=== PATIENT | male | born 1985 | race Caucasian/White ===

== ENCOUNTER 2020-01-24 15:42 | Inpatient (IN) | payer BC ==
[~2020-01-24] VITALS: Ht 182.9 cm; Wt 86.5 kg
[2020-01-24] MEDS ORDERED: NALOXONE 2 MG/2 ML DISP.SYRIN. IV ONE (17:00)
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
[2020-01-24] MEDS ORDERED: IV NORMAL SALINE 1000ML BAG 1,000 ML IV ONE (18:15)
[2020-01-24 18:29] LABS: BASO # 0.1 x10^3/uL (0.0-0.2); BASO % 1 % (0-3); EOS # 0.4 x10^3/uL (0.0-0.7); EOS % 5 % (0-3); HEMATOCRIT 43.7 % (39.0-53.0); HEMOGLOBIN 14.9 g/dL (13.0-17.5); LYMPH % 24 % (24-48); MEAN CORPUSCULAR HEMOGLOBIN 32 pg (25-35); MEAN CORPUSCULAR HGB CONC 34 g/dL (31-37); MEAN CORPUSCULAR VOLUME 95 fL (79-100); MONO # 0.5 x10^3/uL (0.0-1.1); MONO % 6 % (0-9); NEUT # 5.6 x10^3/uL (1.8-7.7); NEUT % 65 % (31-73); PLATELET COUNT 225 x10^3/uL (140-400); RED BLOOD COUNT 4.62 x10^6/uL (4.30-5.70); RED CELL DISTRIBUTION WIDTH 13.5 % (11.5-14.5); WHITE BLOOD COUNT 8.6 x10^3/uL (4.0-11.0)
[2020-01-24 18:40] LABS: CALCIUM 9.2 mg/dL (8.5-10.1); CREATININE 0.9 mg/dL (0.7-1.3); GFR 97.2; POTASSIUM 3.9 mmol/L (3.5-5.1)
[2020-01-24 18:46] LABS: ALBUMIN 4.4 g/dL (3.4-5.0); ALBUMIN/GLOBULIN RATIO 1.3 (1.0-1.7); ETHANOL < 10 mg/dL (0-10); SALIC < 2.8 mg/dL (2.8-20.0); TOTAL BILIRUBIN 0.4 mg/dL (0.2-1.0); TOTAL PROTEIN 7.7 g/dL (6.4-8.2)
[2020-01-24 18:47] LABS: ACETAMIN < 2 mcg/ml (10-30)
[2020-01-24] MEDS ORDERED: NALOXONE 2 MG/2 ML DISP.SYRIN. IV PRN (20:00)
[2020-01-24] MEDS ORDERED: ONDANSETRON PF 4 MG/2 ML VIAL. IV PRN ×2 (20:00→21:00)
[2020-01-24] MEDS ORDERED: ALBUTEROL SULFATE 2.5 MG/3 ML NEBU. NEB PRN (21:00)
[2020-01-24] MEDS ORDERED: diphenhydrAMINE 50 MG/ML VIAL IVP PRN (21:00)
[2020-01-24] MEDS ORDERED: ZOLPIDEM 5 MG TABLET. PO PRN (21:00)
[2020-01-24] MEDS ORDERED: DOCUSATE SODIUM 100 MG CAPSULE. PO PRN (21:00)
[2020-01-24] MEDS ORDERED: guaiFENesin ORAL 200 MG/10 ML LIQUID. PO PRN (21:00)
--- NOTE | 2020-01-24 21:25 | NUR ---
Patient, KEILA FERNANDEZ, admitted to room 244, per navdeep/ED, patient very somnolent, did open eyes when transferred to bed, also when turning him to remove excess bedding out from under him..staff slipped his jeans off, in case he had any meds in his pockets. patient did open his eyes, unable to obtain any history from him, the history that was obtained, was from ED staff's discussions with patient's mother. BRYSON Cook, called to check on pt, did not have passcode, so not much info is given, Ms Cook said he is on Abilify and trazodone, and unknown names of other medications.
[2020-01-24 21:30] VITALS: BP 103/53
[2020-01-24] MEDS ORDERED: MULTIVIT INFUSN,ADULT 4,VIT K 10 ML, THIAMINE INJ 100 MG, FOLIC ACID INJ 1 MG in IV NOR... IV ONE (22:00)
[2020-01-24 22:50] VITALS: BP 114/67
[2020-01-24 23:40] VITALS: BP 133/75
[2020-01-24] MEDS ORDERED: NALOXONE 0.4 MG/ML VIAL. IV ONE (23:45)
[2020-01-24 23:50] VITALS: BP 150/83
[2020-01-25] VITALS (11 sets, daily range): BP systolic 95–141; BP diastolic 55–68
[2020-01-25 00:27] LABS: BASE EXCESS ABG 1 mmol/L (-3-3); HCO3 ABG 31 mmol/L (21-28); PO2 ABG 67 mmHg (85-108)
[2020-01-25] MEDS ORDERED: NALOXONE 0.4 MG/ML VIAL. IV PRN (00:45)
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
[2020-01-25] MEDS ORDERED: FLUMAZENIL 0.5 MG/5 ML VIAL. IV ONE ×2 (01:00→09:45)
[2020-01-25 01:12] LABS: PCO2 ABG 80 mmHg (35-46)
[2020-01-25 01:13] LABS: FIO2 ABG 50%
--- NOTE | 2020-01-25 01:31 | NUR ---
Patient's GF, Lesvia Cook, had called again to check on the patient, she said that he was in detox (somewhere behind [facility]), he was there approximately 1 1/2 days, and was not given any meds to help with his detox, so he left AMA. PAT team had talked to patient's mother in the ED, had been given a brochure on [facility] [facility] [place], GF said she [facility], GF said his drug problems have been going on for approximately 2 years.
[2020-01-25 03:02] LABS: BASE EXCESS ABG 3 mmol/L (-3-3); HCO3 ABG 30 mmol/L (21-28); PCO2 ABG 56 mmHg (35-46); PO2 ABG 81 mmHg (85-108)
[2020-01-25 03:07] LABS: FIO2 ABG 50
--- NOTE | 2020-01-25 05:27 | NUR ---
Patient assessed at this time, RR 16, awakens when his name was called, clears throat and asks to be suctioned, clear sputum observed, patient denies having to void, monitoring..
[2020-01-25 08:09] LABS: BILIRUBIN,URINE NEGATIVE (NEG); CLARITY,URINE CLEAR; COLOR,URINE YELLOW; NITRITE,URINE NEGATIVE (NEG); PROTEIN,URINE NEGATIVE (NEG-TRACE); UROBILINOGEN,URINE 0.2 mg/dL (0.2 mg/dL)
[2020-01-25 08:14] LABS: BARBITURATES NEG (NEG); BENZODIAZEPINES POS (NEG); CANNABINOIDS NEG (NEG); COCAINE NEG (NEG); METHADONE NEG (NEG); OPIATES POS (NEG); PHENCYCLIDINE NEG (NEG)
[2020-01-25] MEDS: ACETAMINOPHEN 325 MG TABLET. PO PRN ×2 (08:14→21:38)
[2020-01-25 08:16] LABS: AMPHETAMINE/METHAMPHETAMINE NEG (NEG)
[2020-01-25 08:54] LABS: BACTERIA,URINE 0 /HPF (0-FEW); RBC,URINE 0 /HPF (0-2); SQUAMOUS EPITHELIAL CELL,UR OCC /LPF; WBC,URINE OCC /HPF (0-4)
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
[2020-01-25] MEDS ORDERED: FLUMAZENIL 0.5 MG/5 ML VIAL. IV STA (09:31)
[2020-01-25 09:58] LABS: BASO # 0.1 x10^3/uL (0.0-0.2); BASO % 1 % (0-3); EOS # 0.2 x10^3/uL (0.0-0.7); EOS % 1 % (0-3); HEMATOCRIT 42.5 % (39.0-53.0); HEMOGLOBIN 14.1 g/dL (13.0-17.5); LYMPH # 4.1 x10^3/uL (1.0-4.8); LYMPH % 25 % (24-48); MEAN CORPUSCULAR HEMOGLOBIN 32 pg (25-35); MEAN CORPUSCULAR HGB CONC 33 g/dL (31-37); MEAN CORPUSCULAR VOLUME 95 fL (79-100); MONO # 1.2 x10^3/uL (0.0-1.1); MONO % 7 % (0-9); NEUT # 10.8 x10^3/uL (1.8-7.7); NEUT % 66 % (31-73); PLATELET COUNT 233 x10^3/uL (140-400); RED BLOOD COUNT 4.47 x10^6/uL (4.30-5.70); RED CELL DISTRIBUTION WIDTH 13.9 % (11.5-14.5); WHITE BLOOD COUNT 16.4 x10^3/uL (4.0-11.0)
[2020-01-25 10:06] LABS: ALBUMIN 3.9 g/dL (3.4-5.0); ALBUMIN/GLOBULIN RATIO 1.2 (1.0-1.7); C-REACTIVE PROTEIN 8.1 mg/L (0-3.3); CALCIUM 8.5 mg/dL (8.5-10.1); CREATININE 1.2 mg/dL (0.7-1.3); GFR 69.7; POTASSIUM 3.9 mmol/L (3.5-5.1); TOTAL BILIRUBIN 0.5 mg/dL (0.2-1.0); TOTAL PROTEIN 7.1 g/dL (6.4-8.2)
[2020-01-25] MEDS: NALOXONE 2mg SYRINGE 4 MG in IV NORMAL SALINE 250ML 250 ML IV PRN ×2 (10:27→21:40)
[2020-01-25] MEDS: IV RINGERS,LACTATED 1000ML 1,000 ML IV SCH ×2 (10:28→20:36)
--- NOTE | 2020-01-25 10:33 | NUR ---
Pt asleep during bedside shift report. Pt in bed with Venti mask at 50%. SPO2 97%. Came back for AM assessment at approximately 0730 . Pt had removed IV and was removing tele. I asked him why. He said he was unhooking everything so that he could go pee. I stayued with him and walked to the bathroom. He was steady on his we walked to the bathroom. I had him pee in a urinal so we could get a urine sample. He had no issues. After that he wanted to sit in the chair. He was set on putting his personal clothes back on. I asked if he would wear the gown a little longer. He said no he wants his clothes on because he is going to leave later today. I said ok. I asked him if he was going to leave now. He said no. I called Dr. Alatorre he said pt does not need IV access at this time. Pt was sitting in chair brought in breakfast tray. Pt ate about 75%. Pt mother arrived on unit. I gave her an update on patient situation. She went into room. I was rounding on patient at around 0915. Pt very somnolent. Respirations around 8-10. His mom said he has been in and out of a deep sleep. I went and got a new pulse ox. when I came back his breathing looked like it slowed even more. 02 probe with good wave form reading in the low teens for saturation. Non rebreather applied and charge nurse notified. Breathing continued to slow. proof plate maker began bagging patient and Priscila Burroughs was called. See Code blue sheet. Pt transfered to ICU room 108 with MD alarcon
[2020-01-25 12:38] LABS: BARBITURATES NEG (NEG); BENZODIAZEPINES POS (NEG); CANNABINOIDS NEG (NEG); COCAINE NEG (NEG); METHADONE NEG (NEG); OPIATES POS (NEG); PHENCYCLIDINE NEG (NEG)
[2020-01-25 12:39] LABS: AMPHETAMINE/METHAMPHETAMINE NEG (NEG)
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
[2020-01-25] MEDS ORDERED: hydrOXYzine 10 MG TABLET PO PRN (13:45)
[2020-01-25] MEDS ORDERED: traZODone 50 MG TABLET. PO PRN (13:45)
[2020-01-25] MEDS ORDERED: ARIPiprazole 5 MG TABLET PO SCH (14:00)
[2020-01-25] MEDS ORDERED: CITALOPRAM 20 MG TABLET. PO SCH (14:00)
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
[2020-01-25] MEDS: levETIRAcetam 500 MG TABLET PO SCH ×2 (18:39→20:41)
[2020-01-25] MEDS: oxyCODONE/APAP 5/325 1 TAB TABLET PO PRN (18:40)
[2020-01-26] VITALS (8 sets, daily range): BP systolic 97–133; BP diastolic 54–67
[2020-01-26] MEDS: oxyCODONE/APAP 5/325 1 TAB TABLET PO PRN ×2 (00:31→05:09)
--- NOTE | 2020-01-26 01:26 | NUR ---
Pt Mom came out to the desk at this time, states patient is preparing to leave. I entered the room, pt states he is miserable, anxious and wants to leave. He states the narcan makes him feel horrible. With another ICU nurse at bedside, I did education with the patient about the narcan gtt. Pt verbalized understanding. He is wanting to leave still. After discussion, he is agreeable to stay to be monitored if the narcan gtt can be paused at this time to see if it alleviates his anxiety. All monitoring equipment is in use on the patient. Mom at bedside still. Pt resting in bed quietly at this time watching television.
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
--- NOTE | 2020-01-26 11:00 | PDOC3 ---
Discharge Summary Visit Information Date of Admission: Jan 25, 2020 Date of Discharge: Jan 26, 2020 Admitting Diagnosis Comment: Overdose Final Diagnosis Problems Medical Problems: (1) Narcotic overdose Status: Acute Overdose of fentanyl and Xanax Status post CODE BLUE Seizure disorder? Generalized anxiety disorder Polysubstance abuse Toxic encephalopathy Seizures apparently related to tramadol Multiple psychiatric diagnoses Polysubstance abuse Brief Hospital Course Allergies Allergies Coded Allergies Type Severity Reaction Last Updated Verified cat dander Allergy Intermediate Shortness of Air 01/26/20 Yes Vital Signs Vital Signs Date Time Temp Pulse Resp B/P (MAP) Pulse Ox O2 Delivery O2 Flow Rate FiO2 01/26/20 07:00 74 16 121/60 (80) 95 Room Air 01/26/20 04:00 99.1 99.1 01/26/20 01:31 2.0 Lab Results Laboratory Tests Test 01/24/20 18:20 01/24/20 20:19 01/24/20 23:33 01/24/20 23:42 White Blood Count 8.6 x10^3/uL (4.0-11.0) Red Blood Count 4.62 x10^6/uL (4.30-5.70) Hemoglobin 14.9 g/dL (13.0-17.5) Hematocrit 43.7 % (39.0-53.0) Mean Corpuscular Volume 95 fL (79-100) Mean Corpuscular Hemoglobin 32 pg (25-35) Mean Corpuscular Hemoglobin Concent 34 g/dL (31-37) Red Cell Distribution Width 13.5 % (11.5-14.5) Platelet Count 225 x10^3/uL (140-400) Neutrophils (%) (Auto) 65 % (31-73) Lymphocytes (%) (Auto) 24 % (24-48) Monocytes (%) (Auto) 6 % (0-9) Eosinophils (%) (Auto) 5 % (0-3) Basophils (%) (Auto) 1 % (0-3) Neutrophils # (Auto) 5.6 x10^3/uL (1.8-7.7) Lymphocytes # (Auto) 2.0 x10^3/uL (1.0-4.8) Monocytes # (Auto) 0.5 x10^3/uL (0.0-1.1) Eosinophils # (Auto) 0.4 x10^3/uL (0.0-0.7) Basophils # (Auto) 0.1 x10^3/uL (0.0-0.2) Sodium Level 139 mmol/L (136-145) Potassium Level 3.9 mmol/L (3.5-5.1) Chloride Level 102 mmol/L (98-107) Carbon Dioxide Level 32 mmol/L (21-32) Anion Gap 5 (6-14) Blood Urea Nitrogen 14 mg/dL (8-26) Creatinine 0.9 mg/dL (0.7-1.3) Estimated GFR (Cockcroft-Gault) 97.2 BUN/Creatinine Ratio 16 (6-20) Glucose Level 105 mg/dL (70-99) Calcium Level 9.2 mg/dL (8.5-10.1) Total Bilirubin 0.4 mg/dL (0.2-1.0) Aspartate Amino Transf (AST/SGOT) 25 U/L (15-37) Alanine Aminotransferase (ALT/SGPT) 39 U/L (16-63) Alkaline Phosphatase 55 U/L (46-116) Total Protein 7.7 g/dL (6.4-8.2) Albumin 4.4 g/dL (3.4-5.0) Albumin/Globulin Ratio 1.3 (1.0-1.7) Salicylates Level < 2.8 mg/dL (2.8-20.0) Salicylate Last Dose Date Unknown Salicylate Last Dose Time Unknown Acetaminophen Level < 2 mcg/ml (10-30) Acetaminophen Last Dose Date Unknown Acetaminophen Last Dose Time Unknown Ethyl Alcohol Level < 10 mg/dL (0-10) SARS-CoV-2 Antigen (Rapid) Negative (NEGATIVE) Arterial Blood pH 7.21 (7.35-7.45) Arterial Blood pCO2 at Patient Temp 80 mmHg (35-46) Arterial Blood pO2 at Patient Temp 67 mmHg (85-108) Arterial Blood HCO3 31 mmol/L (21-28) Arterial Blood Base Excess 1 mmol/L (-3-3) FiO2 50% Glucose (Fingerstick) 115 mg/dL (70-99) Test 01/25/20 02:46 01/25/20 08:00 01/25/20 09:30 01/25/20 09:35 Arterial Blood pH 7.34 (7.35-7.45) Arterial Blood pCO2 at Patient Temp 56 mmHg (35-46) Arterial Blood pO2 at Patient Temp 81 mmHg (85-108) Arterial Blood HCO3 30 mmol/L (21-28) Arterial Blood Base Excess 3 mmol/L (-3-3) FiO2 50 Urine Collection Type Unknown Urine Color Yellow Urine Clarity Clear Urine pH 6.0 (<5.0-8.0) Urine Specific [place] <=1.005 (1.000-1.030) Urine Protein Negative mg/dL (NEG-TRACE) Urine Glucose (UA) Negative mg/dL (NEG) Urine Ketones (Stick) Negative mg/dL (NEG) Urine Blood Negative (NEG) Urine Nitrite Negative (NEG) Urine Bilirubin Negative (NEG) Urine Urobilinogen Dipstick 0.2 mg/dL (0.2 mg/dL) Urine Leukocyte Esterase Negative (NEG) Urine RBC 0 /HPF (0-2) Urine WBC Occ /HPF (0-4) Urine Squamous Epithelial Cells Occ /LPF Urine Bacteria 0 /HPF (0-FEW) Urine Opiates Screen Pos (NEG) Urine Methadone Screen Neg (NEG) Urine Barbiturates Neg (NEG) Urine Phencyclidine Screen Neg (NEG) Urine Amphetamine/Methamphetamine Neg (NEG) Urine Benzodiazepines Screen Pos (NEG) Urine Cocaine Screen Neg (NEG) Urine Cannabinoids Screen Neg (NEG) Urine Ethyl Alcohol Neg (NEG) Glucose (Fingerstick) 192 mg/dL (70-99) White Blood Count 16.4 x10^3/uL (4.0-11.0) Red Blood Count 4.47 x10^6/uL (4.30-5.70) Hemoglobin 14.1 g/dL (13.0-17.5) Hematocrit 42.5 % (39.0-53.0) Mean Corpuscular Volume 95 fL (79-100) Mean Corpuscular Hemoglobin 32 pg (25-35) Mean Corpuscular Hemoglobin Concent 33 g/dL (31-37) Red Cell Distribution Width 13.9 % (11.5-14.5) Platelet Count 233 x10^3/uL (140-400) Neutrophils (%) (Auto) 66 % (31-73) Lymphocytes (%) (Auto) 25 % (24-48) Monocytes (%) (Auto) 7 % (0-9) Eosinophils (%) (Auto) 1 % (0-3) Basophils (%) (Auto) 1 % (0-3) Neutrophils # (Auto) 10.8 x10^3/uL (1.8-7.7) Lymphocytes # (Auto) 4.1 x10^3/uL (1.0-4.8) Monocytes # (Auto) 1.2 x10^3/uL (0.0-1.1) Eosinophils # (Auto) 0.2 x10^3/uL (0.0-0.7) Basophils # (Auto) 0.1 x10^3/uL (0.0-0.2) Sodium Level 139 mmol/L (136-145) Potassium Level 3.9 mmol/L (3.5-5.1) Chloride Level 103 mmol/L (98-107) Carbon Dioxide Level 30 mmol/L (21-32) Anion Gap 6 (6-14) Blood Urea Nitrogen 13 mg/dL (8-26) Creatinine 1.2 mg/dL (0.7-1.3) Estimated GFR (Cockcroft-Gault) 69.7 BUN/Creatinine Ratio 11 (6-20) Glucose Level 184 mg/dL (70-99) Lactic Acid Level 1.7 mmol/L (0.4-2.0) Calcium Level 8.5 mg/dL (8.5-10.1) Total Bilirubin 0.5 mg/dL (0.2-1.0) Aspartate Amino Transf (AST/SGOT) 24 U/L (15-37) Alanine Aminotransferase (ALT/SGPT) 34 U/L (16-63) Alkaline Phosphatase 56 U/L (46-116) C-Reactive Protein, Quantitative 8.1 mg/L (0-3.3) Total Protein 7.1 g/dL (6.4-8.2) Albumin 3.9 g/dL (3.4-5.0) Albumin/Globulin Ratio 1.2 (1.0-1.7) Thyroid Stimulating Hormone (TSH) 1.172 uIU/mL (0.358-3.74) Test 01/25/20 12:20 Urine Opiates Screen Pos (NEG) Urine Methadone Screen Neg (NEG) Urine Barbiturates Neg (NEG) Urine Phencyclidine Screen Neg (NEG) Urine Amphetamine/Methamphetamine Neg (NEG) Urine Benzodiazepines Screen Pos (NEG) Urine Cocaine Screen Neg (NEG) Urine Cannabinoids Screen Neg (NEG) Urine Ethyl Alcohol Neg (NEG) Laboratory Tests Test 01/25/20 12:20 Urine Opiates Screen Pos (NEG) Urine Methadone Screen Neg (NEG) Urine Barbiturates Neg (NEG) Urine Phencyclidine Screen Neg (NEG) Urine Amphetamine/Methamphetamine Neg (NEG) Urine Benzodiazepines Screen Pos (NEG) Urine Cocaine Screen Neg (NEG) Urine Cannabinoids Screen Neg (NEG) Urine Ethyl Alcohol Neg (NEG) Brief Hospital Course Mr. Ruvalcaba is a 35 old male who presented for the above-mentioned overdose. The patient was transferred to the intensive care unit estimated presenting and CODE BLUE and then he was found in the ICU to be leaking a dollar bill that apparently had narcotics and went unresponsive again. The patient was given Narcan and he woke up again no intubation was required nevertheless this morning after coping with withdrawal symptoms with Percocet he decided to leave AGAINST MEDICAL ADVICE. His mother apparently was here and took the patient with her. I was not present at the time of the event informed by nursing staff after the incident Discharge Information Condition at Discharge: Stable Justicifation of Admission Dx: Justifications for Admission: Justification of Admission Dx: Yes (NARCAN) BAUTISTA BERMUDEZ MD Jan 26, 2020 11:00
--- NOTE | 2020-01-28 05:24 | EKG ---
[facility] [address] [place] [id number] Test Date: 2020-01-24 Test Time: 15:42:54 Pat Name: KEILA FERNANDEZ Department: Room: 108 1 Gender: M Communication Technician: : [id number] Requested By: TUNG STROUD Order Number: [id number] Reading MD: Measurements Intervals [place] Rate: 89 P: 44 TN: 164 QRS: -8 QRSD: 94 T: 42 QT: 366 QTc: 446 Interpretive Statements SINUS RHYTHM LEFTWARD AXIS OTHERWISE NORMAL ECG RI6.02 No previous ECG available for comparison
== END 2020-01-26 07:30 | disposition left against medical advice (07) | DRG 917 ==
LOC: ER 15:42 → 2 SOUTH 19:53 → 1 WEST ICU 01-25 09:45
PROVIDERS: ADMIT Internal Medicine; ATTEND Internal Medicine
DX: T40.4X1A Poisoning by other synthetic narcotics, accidental (unintentional), initial encounter (principal); G92 Toxic encephalopathy; T42.4X1A Poisoning by benzodiazepines, accidental (unintentional), initial encounter; J45.909 Unspecified asthma, uncomplicated; G40.909 Epilepsy, unspecified, not intractable, without status epilepticus; F43.10 Post-traumatic stress disorder, unspecified; F41.1 Generalized anxiety disorder; F20.9 Schizophrenia, unspecified; F41.9 Anxiety disorder, unspecified; Z20.828 Contact with and (suspected) exposure to other viral communicable diseases; Z79.899 Other long term (current) drug therapy; Y92.89 Other specified places as the place of occurrence of the external cause; Z53.29 Procedure and treatment not carried out because of patient's decision for other reasons
CPT/HCPCS: 36415; 36600; 80053; 80307; 80329; 81001; 82607; 82805; 82962; 83605; 84443; 85025; 86140; 87426; 93005; 94640; 96361; 96374; 99285; G0480; J1200; J2310; J2405; J3411; J3490; J7030; J7050; J7120; G0378; J7613; U0003-CS